=== PATIENT | male | born 1955 | race Two or more races ===

== ENCOUNTER 2017-01-13 17:52 | Emergency (ER) | payer MEDICAID ==
[~2017-01-13] VITALS: Ht 170.2 cm; Wt 99.8 kg
--- NOTE | 2017-01-13 20:21 | NUR ---
CALLED TO RM, NO ANSWER.
--- NOTE | 2017-01-13 20:36 | NUR ---
CALLED TO RM, NO ANSWER.
--- NOTE | 2017-01-13 21:03 | NUR ---
CALLED TO RM, NO ANSWER. LWBS
== END 2017-01-13 21:21 | disposition left against medical advice (07) ==
LOC: ER 17:53
DX: Z53.21 Procedure and treatment not carried out due to patient leaving prior to being seen by health care provider (principal)
CPT/HCPCS: A4606

== ENCOUNTER 2017-07-02 18:54 | Emergency (ER) | payer MEDICAID ==
[~2017-07-02] VITALS: Ht 170.2 cm; Wt 90.7 kg
--- NOTE | 2017-07-02 19:06 | NUR ---
PT TO ED DT GENERALIZED BODY SKIN ITCHINESS AND PAIN. LOWER BACK AND LEG NUMBNESS X 1 DAY. VSS
[2017-07-02 19:36] VITALS: BP 148/88
--- NOTE | 2017-07-02 19:37 | NUR ---
Patient discharged to home in stable condition. Written and verbal after care instructions given. Patient verbalizes understanding of instruction.
== END 2017-07-02 19:38 | disposition home or self-care (01) ==
LOC: ER 18:59
DX: R21 Rash and other nonspecific skin eruption (principal); Z88.5 Allergy status to narcotic agent
CPT/HCPCS: 99283; A4606; Z7610